=== PATIENT | male | born 1950 | race Two or more races ===

== ENCOUNTER 2018-07-24 09:00 | Outpatient (CLI) | payer OTHER | END 2018-07-24 09:08 | disposition home or self-care (01) | LOC: RAD 501 09:00 | DX: N20.1 Calculus of ureter (principal) ==

== ENCOUNTER 2018-08-07 14:09 | Inpatient (IN) | payer OTHER ==
[~2018-08-07] VITALS: Ht 180.3 cm; Wt 86.2 kg
[2018-08-07] MEDS ORDERED: METOPROLOL SUCC25 MG (14:26)
[2018-08-07] MEDS ORDERED: RAMIPRIL2.5 MG (14:26)
[2018-08-07] MEDS ORDERED: ECOTRIN81 MG (14:26)
[2018-08-07] MEDS ORDERED: CRESTOR10 MG (14:26)
== END 2018-08-08 19:17 | disposition home or self-care (01) | DRG 660 ==
LOC: ER 14:09 → SURG 18:32
PROVIDERS: Urology
PROC: 0TC78ZZ Extirpation of Matter from Left Ureter, Via Natural or Artificial Opening Endoscopic (ICD-10-PCS; 2018-08-08)
PROC: BW21ZZZ Computerized Tomography (CT Scan) of Abdomen and Pelvis (ICD-10-PCS; 2018-08-08)
PROC: 0T778DZ Dilation of Left Ureter with Intraluminal Device, Via Natural or Artificial Opening Endoscopic (ICD-10-PCS; 2018-08-08)
PROC: BT1FZZZ Fluoroscopy of Left Kidney, Ureter and Bladder (ICD-10-PCS; 2018-08-08)
PROC: 0TC18ZZ Extirpation of Matter from Left Kidney, Via Natural or Artificial Opening Endoscopic (ICD-10-PCS; principal; 2018-08-08 11:00)
DX: N20.1 Calculus of ureter (principal); N17.8 Other acute kidney failure; N20.0 Calculus of kidney; N20.2 Calculus of kidney with calculus of ureter; N13.5 Crossing vessel and stricture of ureter without hydronephrosis; K57.30 Diverticulosis of large intestine without perforation or abscess without bleeding; I25.10 Atherosclerotic heart disease of native coronary artery without angina pectoris; I10 Essential (primary) hypertension; E78.49 Other hyperlipidemia; Z95.1 Presence of aortocoronary bypass graft; Z90.49 Acquired absence of other specified parts of digestive tract

== ENCOUNTER 2018-08-20 08:14 | Outpatient (CLI) | payer OTHER ==
[~2018-08-20 08:14] MED LIST: CRESTOR10 MG; ECOTRIN81 MG; METOPROLOL SUCC25 MG; RAMIPRIL2.5 MG
== END 2018-08-20 09:12 | disposition home or self-care (01) ==
LOC: RAD 501 08:14
DX: N20.0 Calculus of kidney (principal)

== ENCOUNTER 2018-09-04 09:11 | Outpatient (CLI) | payer OTHER | END 2018-09-04 09:21 | disposition home or self-care (01) | LOC: RAD 501 09:11 | DX: N20.0 Calculus of kidney (principal) ==

== ENCOUNTER 2018-11-05 15:14 | Outpatient (CLI) | payer OTHER | END 2018-11-05 15:25 | disposition home or self-care (01) | LOC: LAB 15:14 | DX: N20.0 Calculus of kidney (principal) ==

== ENCOUNTER → 2018-11-07 10:52 | Outpatient (CLI) | payer OTHER | END | disposition home or self-care (01) | LOC: LAB 10:52 | DX: N20.0 Calculus of kidney (principal) ==

== ENCOUNTER 2018-11-18 08:24 | Outpatient (CLI) | payer OTHER ==
[~2018-11-18 08:24] MED LIST changes: +ALTACE2.5 MG; +ASA81 MG; +PLAVIX75 MG; +TOPROL XL25 MG
== END 2018-11-18 08:38 | disposition home or self-care (01) ==
LOC: RAD 501 08:24
DX: N20.0 Calculus of kidney (principal)

== ENCOUNTER 2024-03-18 14:50 | Outpatient (CLI) | payer OTHER | END 2024-03-18 14:55 | disposition home or self-care (01) | LOC: RAD 14:50 | PROVIDERS: ATTEND Urology | DX: N20.0 Calculus of kidney (principal) ==

== ENCOUNTER 2024-06-22 08:52 | Outpatient (CLI) | payer OTHER | END 2024-06-22 09:15 | disposition home or self-care (01) | LOC: RAD 08:52 | PROVIDERS: ATTEND Urology | DX: N20.1 Calculus of ureter (principal) ==

== ENCOUNTER 2024-08-11 10:16 | Outpatient (CLI) | payer OTHER | END 2024-08-11 10:20 | disposition home or self-care (01) | LOC: RAD 10:16 | PROVIDERS: ATTEND Urology | DX: N20.0 Calculus of kidney (principal) ==

== ENCOUNTER 2025-05-05 10:07 | Outpatient (CLI) | payer OTHER | END 2025-05-05 10:08 | disposition home or self-care (01) | LOC: RAD 10:07 | PROVIDERS: ATTEND Urology | DX: N20.0 Calculus of kidney (principal) ==